=== PATIENT | male | born 1970 ===

== ENCOUNTER → 2017-11-26 | Outpatient (CLI) | payer BC ==
[2017-11-26 14:06] LABS: BASO % 0.6 % (0.0-2.0); EOS # 0.2 (0.0-0.7); EOS % 2.6 % (0-4.0); GRAN # 4.1 (1.4-6.5); GRAN % 60.1 % (42.2-75.2); HEMATOCRIT 44.5 % (42.0-52.0); HEMOGLOBIN 15.2 g/dl (13.5-18.0); LYMPH % 29.9 % (20.0-51.0); MEAN CELL VOLUME 87 fl (80.0-100.0); MEAN CORPUSCULAR HEMOGLOBIN 30 pg (27.0-31.0); MEAN CORPUSCULAR HGB CONC 34 g/dl (33.0-37.0); MEAN PLATELET VOLUME 9.4 fl (7.4-10.4); MONO # 0.4 (0.1-0.6); MONO % 6.5 % (1.7-9.3); PLATELET COUNT 296 K/mm3 (130-400); RED BLOOD COUNT 5.11 M/mm3 (4.20-5.60); REDCELL DISTRIBUTION WIDTH-CV 12.3 % (11.5-14.5)
[2017-11-26 14:21] LABS: ALBUMIN 4.1 gm/dL (3.5-5.0); BILIRUBIN,TOTAL 0.5 mg/dL (0.0-1.0); CALCIUM 9.2 mg/dL (8.4-10.2); CHOLESTEROL RISK RATIO 4.4; CREATININE, serum 0.7 mg/dL (0.66-1.25); POTASSIUM 3.8 mmol/L (3.4-5.0); TOTAL PROTEIN 7.7 gm/dL (6.4-8.2)
== END ==
LOC: COL.LAB 09:23
PROVIDERS: Family Medicine
DX: Z00.00 Encounter for general adult medical examination without abnormal findings (principal); Z13.220 Encounter for screening for lipoid disorders; R73.03 Prediabetes

== ENCOUNTER → 2023-07-08 | Outpatient (CLI) | payer BC | LOC: DIA.ED 05:53 | DX: E11.9 Type 2 diabetes mellitus without complications (principal); I10 Essential (primary) hypertension | CPT/HCPCS: G0108 ==

== ENCOUNTER → 2023-08-05 | Outpatient (CLI) | payer BC | LOC: DIA.ED 08:29 | DX: E11.9 Type 2 diabetes mellitus without complications (principal); I10 Essential (primary) hypertension ==

== ENCOUNTER 2023-10-02 12:02 | Emergency (ER) | payer BC ==
[~2023-10-02] VITALS: Ht 193 cm; Wt 120.5 kg
[2023-10-02] MEDS ORDERED: NS 1,000 ML IV ONE (12:45)
[2023-10-02] MEDS ORDERED: Ondansetron 4 MG/2 ML VIAL IV PRN (12:45)
[2023-10-02] MEDS ORDERED: Morphine 4 MG/ML VIAL IV PRN (12:45)
[2023-10-02 13:13] LABS: BASO # 0.1 K/mm3 (0.0-0.2); BASO % 0.7 % (0.0-2.0); EOS # 0.2 K/mm3 (0.0-0.7); EOS % 2.1 % (0.0-4.0); GRAN # 4.7 K/mm3 (1.4-6.5); GRAN % 64.4 % (42.2-75.2); HEMATOCRIT 44.8 % (42.0-52.0); LYMPH # 1.9 K/mm3 (1.2-3.4); LYMPH % 25.6 % (20.0-51.0); MEAN CELL VOLUME 87 fl (80.0-100.0); MEAN CORPUSCULAR HEMOGLOBIN 29 pg (27-31); MEAN CORPUSCULAR HGB CONC 34 g/dl (33.0-37.0); MEAN PLATELET VOLUME 9.5 fl (7.4-10.4); MONO # 0.5 K/mm3 (0.1-0.6); MONO % 6.9 % (1.7-9.3); PLATELET COUNT 303 K/mm3 (130-400); RED BLOOD COUNT 5.13 M/mm3 (4.20-5.60); REDCELL DISTRIBUTION WIDTH-CV 12.5 % (11.5-14.5)
[2023-10-02 13:15] LABS: PH 5.5 (5.0-8.5); URINE APPEARANCE CLEAR (CLEAR/HAZY); URINE BLOOD NEGATIVE (NEGATIVE); URINE COLOR YELLOW (YELLOW); URINE GLUCOSE NEGATIVE (NEGATIVE); URINE KETONE 1+ (NEGATIVE); URINE NITRATE NEGATIVE (NEGATIVE); URINE PROTEIN(semi-quant) NEGATIVE (NEGATIVE); URINE UROBILINOGEN 0.2 E.U/dL (0.2-1.0)
[2023-10-02 13:21] LABS: COLLECTION METHOD CLEAN CATCH
[2023-10-02 13:26] LABS: ALBUMIN 4.1 g/dL (3.5-5.0); BILIRUBIN,TOTAL 0.5 mg/dL (0.2-1.2); CALCIUM 9.7 mg/dL (8.4-10.2); CREATININE, serum 0.83 mg/dL (0.72-1.25); POTASSIUM 3.6 mEq/L (3.5-4.5); TOTAL PROTEIN 7.6 g/dl (6.2-8.1)
[2023-10-02] MEDS ORDERED: Iohexol 300 - 100 ML VIAL IV ONE (13:50)
[2023-10-02] MEDS ORDERED: NS 100 ML IV SCH (13:51)
[2023-10-02 15:08] VITALS: BP 179/104; PULSE 65; TEMP 98
== END 2023-10-02 15:08 | disposition home or self-care (01) ==
LOC: COL.ER 12:02
PROVIDERS: Personal Emergency Response Attendant
DX: R10.31 Right lower quadrant pain (principal); M54.50 Low back pain, unspecified; R91.8 Other nonspecific abnormal finding of lung field; I10 Essential (primary) hypertension; X50.0XXA Overexertion from strenuous movement or load, initial encounter
CPT/HCPCS: J7030; Q9967